=== PATIENT | female | born 1945 | race Caucasian/White ===

== ENCOUNTER 2017-01-11 04:55 | Observation (INO) | payer MEDICARE ==
[~2017-01-11] VITALS: Ht 165.1 cm; Wt 67.8 kg
--- NOTE | 2017-01-11 06:54 | DIAGNOSTIC IMAGING REPORT ---
PROCEDURE: CTA THORAX WITH CONTRAST INDICATION: SHORTNESS OF BREATH TECHNIQUE: 92 ml of Isovue 370 was injected intravenously and axial images were obtained of the entire thorax with 3D sagittal and coronal MIP reconstructions. COMPARISON: Chest x-ray 01/11/2017. FINDINGS: There are two small right lower lobe of pulmonary emboli. Small left pleural effusion and left basilar atelectasis. Elevated left hemidiaphragm. No adenopathy. Sternotomy and CABG. No aortic dissection or aneurysm. Normal heart size with pericardial thickening/small pericardial effusion. Visualized upper abdomen is unremarkable. Mild degenerative changes of the spine. IMPRESSION: 1. Small pulmonary emboli to the right lower lobe 2. Postoperative left basilar atelectasis and small pleural effusion 3. CABG 4. Results discussed with Dr. Dawson
--- NOTE | 2017-01-11 06:58 | DIAGNOSTIC IMAGING REPORT ---
PROCEDURE: XR CHEST 1 VIEW INDICATION: SOB TECHNIQUE: Portable AP view 05:31 a.m. COMPARISON: None. FINDINGS: Mild elevation of the left hemidiaphragm with left basilar mild atelectasis and blunting of the costophrenic angle suggestive of a small effusion. Sternotomy and CABG. Heart size, mediastinum and pulmonary vessels are normal. Bones are unremarkable. IMPRESSION: 1. Mild left basilar atelectasis and small left pleural effusion 2. CABG
--- NOTE | 2017-01-11 07:42 | ED NURSING NOTES ---
Clinical Report - Nurses [facility] [address] [place] [address] 01/11/2017 5:03 [id number] Triage time 04:59. Acuity: LEVEL 2. Chief Complaint: PALPITATIONS and DYSPNEA. Alert. No acute distress. --05:21 Marina Truong R.N. 04:59 01/11/17. BP: 111/61. HR: 71. RR: 15 (regular, unlabored and normal). O2 saturation: 96% on room air. Temp: 98.1 F (oral). Pain level now: 09/24. --05:21 Marina Truong R.N. Weight: 69.8 kg stated. Height/Length: 65.4 inches Per Patient. BMI: 25.3. --05:21 Marina Truong R.N. Medications Acetaminophen Oral (Tablet 325 mg) 2 tablets, PRN. --05:06 Marina Truong R.N. Amiodarone HCL Oral (Tablet 200 mg) 1 tablet, at bedtime. --05:06 Marina Truong R.N. Atorvastatin Calcium Oral (Tablet 40 mg) 1 tablet, at bedtime. --05:07 Marina Truong R.N. Metoprolol Tartrate Oral (Tablet 25 mg) 1 tablet, twice daily. --05:07 Marina Truong R.N. Aspirin Oral (Tablet 325 mg) 1 tablet, daily. --05:08 Marina Truong R.N. Multivitamins Oral 1 pill, daily. --05:08 Marina Truong R.N. Polycarbophil Calcium Oral 625 mg, daily. --05:09 Marina Truong R.N. Allergies Codeine.(nausea) --05:10 Marina Truong R.N. History Arrived by private vehicle. Historian: patient. Accompanied by family. Primary physician (ALBER). ( Had triple bypass on 12-29-16, has been feeling mildly short of breath since the surgery & has not been sleeping well. Tonight she woke up around 0300 feeling increasingly short of breath, took Tylenol). This started today. Onset. (at about 0300). 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 (last dose today at 0300). SOCIAL HX: Smoker- current status unknown. Regular alcohol use; consumes two glasses of wine. History of drug use: marijuana. --05:21 Marina Truong R.N. PROBLEMS: Nonrheumatic aortic valve insufficiency. Hyperlipidemia. Essential Hypertension. Coronary Artery Disease. Angina. --05:19 Marina Truong R.N. ADDITIONAL SURGERIES: Coronary Artery Bypass Graft. Hysterectomy. --05:19 Marina Truong R.N. Interventions ID band on patient. To treatment room. --05: Marina Truong R.N. PHYSICAL ASSESSMENT Ambulatory to room. Patient gowned. ( FAST exam negative). GENERAL / NEURO / PSYCH: Alert. Oriented X 4. Appears in no acute distress. HEENT: Mucous membranes are pink. RESPIRATORY: Respirations not labored. CVS: Capillary refill less than 2 seconds. SKIN: Skin is warm and dry. --05: Marina Truong R.N. EXTREMITIES: Ecchymosis present on the left leg (multiple bruises along left leg.). Non-pitting edema of the left lower extremity involving the foot, ankle and lower leg. SKIN: Extremity wound present (two incision sites noted in left femoral area (tagaderm in place upon arrival) and on medial aspect of left knee (redness noted)). --05:28 Marina Truong R.N. NURSING PROGRESS NOTES Head of bed elevated. Two patient identifiers checked. Call light placed in reach. Side rails up x 1. Bed placed in lowest position. Brakes of bed on. --05:22 Marina Truong R.N. Oxygen administered by nasal cannula at 2 liters (applied upon arrival to ED). teletypesetter monitor, pulse oximeter and NIBP monitor placed on patient; monitor alarms on. --:22 Marina Truong R.N. 05:20 01/11/2017 Site #1 started via IV in the left antecubital space with an 20g angiocath, with aseptic technique and good blood return; one attempt. Blood drawn: rainbow set. Labeled in the presence of the patient and sent to the lab. Saline lock flushed with 10 mL saline (IV started by DEWEY Crocker). --05:23 Marina Truong R.N. 05:32 01/11/17. Portable chest x-ray performed and shown to the ED physician. --05:32 Marina Truong R.N. Critical value relayed to ED by JOSÉ MIGUEL Baires. D-dimmer 5.55. Critical value. Verified lab result and patient ID. ED physician notifed of critical value. --05:54 Marina Truong R.N. ( assisted pt to ambulate to restroom to obtain urine sample. Pt tolerated well, no obvious increase in dyspnea.). --05:58 Marina Truong R.N. Patient ID band checked for patient name and birthdate: patient confirmed. Instructions provided to collect clean catch urine and patient verbalized understanding. Clean catch urine collected with return of yellow-colored clear urine; sample sent to lab. Specimen labeled in the presence of the patient. --06:05 Marina Truong R.N. 06:05 01/11/17. BP: 128/65. HR: 68. RR: 15 (regular and unlabored). O2 saturation: 100% on nasal cannula at 2 liters/minute. --06:06 Marina Truong R.N. ( US Tech at bedside performing US exam.). --06:45 Marina Truong R.N. EKG time: (05:05 AM). EKG was performed by a tech and shown to the ED physician. --06:46 Sandra Lobo 07:05 01/11/17. BP: 111/72. HR: 72. RR: 15. O2 saturation: 96% on room air. --07:09 Marina Truong R.N. ( h/p forms on chart.). --07:44 Oly Goldman ER Tech1 08:22 01/11/2017 Heparin IVP 5584 unit given over 5 minute(s) via site #1. Allergies verified and confirmed 5 rights. IV patency established. IV site checked: no pain, redness, or swelling. IV flushed thoroughly pre- and post-medication administration. --08:22 Morelia Wilson R.N. 08:24 01/11/2017 Heparin IVP 837 unit given over 1 hour(s) via site #1. Allergies verified and confirmed 5 rights. IV patency established. IV site checked: no pain, redness, or swelling. IV flushed thoroughly pre- and post-medication administration. --08:24 Morelia Wilson R.N. 08:24 01/11/17. BP: 136/61. HR: 67. RR: 18. O2 saturation: 95%. Temp: 98.4 F. Pain level now 0/10. --08:24 Morelia Wilson R.N. ( overview faxed to 2nd floor.). --08:32 [place] [id number] 08:24 01/11/17. BP: 136/61. HR: 67. RR: 18. O2 saturation: 95%. Temp: 98.4 F. Pain level now 0/10. 08:00 01/11/17. BP: 115/64. HR: 69. RR: 18. O2 saturation: 94%. 07:30 01/11/17. BP: 116/73. HR: 71. RR: 18. O2 saturation: 95%. --09:16 Morelia Wilson R.N. 09:18 01/11/17. BP: 116/60. HR: 71. RR: 18. O2 saturation: 95%. --09:19 Morelia Wilson R.N. DISPOSITION / DISCHARGE Departure time: 09:Jan 11 2017. Admitted to Acute Care. ( Report given to Elizabeth PALOMO). --09:19 Morelia Wilson R.N. 09:18 01/11/17. BP: 116/60. HR: 71. RR: 18. O2 saturation: 95%. --09:19 Morelia Wilson R.N. Locked/Released at 01/11/2017 10:47 by Morelia Wilson R.N.
--- NOTE | 2017-01-11 07:42 | ED ORDER SUMMARY ---
..... Patient: TEJA WILDE OrderSheet [facility] VisitID: [id number] [place] [address] 71y, F Registration Date/Time: 01/11/2017 ORDER SHEET Weight: 69.8 kg (stated) Allergies: Codeine GENERAL ORDERS: Tabber (Continuous) (SOB) (05:01/11/2017 Keon Rivera) (5:20 RKaruga) EKG - ER Stat (05:01/11/2017 Keon Rivera) (5:20 RKaruga) Pulse oximeter (05:01/11/2017 Keon Rivera) (5:20 RKaruga) Chest 1V Urgent (05:01/11/2017 Keon Rivera) (Ack 5:25 RKaruga) (5:58 RCollier R.N.) US Venous Bilat Urgent (05:01/11/2017 Keon Rivera) (Ack 5:25 RKaruga) (7:11 RCollier R.N.) CBC w Diff Urgent (05:01/11/2017 Keon Rivera) (Ack 5:25 RKaruga) (5:58 RCollier R.N.) CMP Urgent (:01/11/2017 Keon Rivera) (Ack 5:25 RKaruga) (5:58 RCollier R.N.) UA-Culture if indicated Urgent (05:01/11/2017 Keon Rivera) (Ack 5:25 RKaruga) (6:06 RCollier R.N.) PT with INR Urgent (05:01/11/2017 Keon Rivera) (Ack 5:25 RKaruga) (5:58 RCollier R.N.) PTT Urgent (:01/11/2017 Keon Rivera) (Ack 5:25 RKaruga) (5:58 RCollier R.N.) D-Dimer Urgent (05:01/11/2017 Keon Rivera) (Ack 5:25 RKaruga) (5:58 RCollier R.N.) BNP Urgent (05:22 01/11/2017 Keon Rivera) (Ack 5:25 Rosina) (5:58 RCollier R.N.) Troponin-I Urgent (05:22 01/11/2017 Keon Rivera) (Ack 5:25 Rosina) (5:58 RCollier R.N.) CTA Thorax w Cont (No) (gfr > 60) Urgent (05:52 01/11/2017 Keon Rivera) (Ack 6:02 Rosina) (7:11 RCollier R.N.) MEDICATION ORDERS: IV FLUIDS: IV Saline Lock (05:22 01/11/2017 Keon Rivera) (Ack 5:28 RCollier R.N.) Heparin IV : initial bolus 80 units/kg, then 12 units/kg/hr for 12h (HIGH ALERT MEDICATION, NOW) (max bolus 10,000 u. max drip 1,000 u per hour) (07:39 01/11/2017 Keon Rivera) (8:22 LWhalen R.N.) ORDER SHEET NOTES: [Electronically signed by Dustin Dawson Dr. (08:07 01/11/2017)] [Electronically signed by Morelia Wilson R.N. (10:47 01/11/2017)] [Electronically locked/signed by Morelia Wilson R.N. (10:47 01/11/2017)]
--- NOTE | 2017-01-11 07:42 | ED NURSING NOTES ---
Clinical Report - Nurses [facility] [address] [place] [address] 01/11/2017 5:03 [id number] TRIAGE Triage time 04:59. Acuity: LEVEL 2. Chief Complaint: PALPITATIONS and DYSPNEA. Alert. No acute distress. --05:21 Marina Truong R.N. 04:59 01/11/17. BP: 111/61. HR: 71. RR: 15 (regular, unlabored and normal). O2 saturation: 96% on room air. Temp: 98.1 F (oral). Pain level now: 09/24. --05:21 Marina Truong R.N. Weight: 69.8 kg stated. Height/Length: 65.4 inches Per Patient. BMI: 25.3. --05:21 Marina Truong R.N. Medications Acetaminophen Oral (Tablet 325 mg) 2 tablets, PRN. --05:06 Marina Truong R.N. Amiodarone HCL Oral (Tablet 200 mg) 1 tablet, at bedtime. --05:06 Marina Truong R.N. Atorvastatin Calcium Oral (Tablet 40 mg) 1 tablet, at bedtime. --05:07 Marina Truong R.N. Metoprolol Tartrate Oral (Tablet 25 mg) 1 tablet, twice daily. --05:07 Marina Truong R.N. Aspirin Oral (Tablet 325 mg) 1 tablet, daily. --05:08 Marina Truong R.N. Multivitamins Oral 1 pill, daily. --05:08 Marina Truong R.N. Polycarbophil Calcium Oral 625 mg, daily. --05:09 Marina Truong R.N. Allergies Codeine.(nausea) --05:10 Marina Truong R.N. History Arrived by private vehicle. Historian: patient. Accompanied by family. Primary physician (ALBER). ( Had triple bypass on 12-29-16, has been feeling mildly short of breath since the surgery & has not been sleeping well. Tonight she woke up around 0300 feeling increasingly short of breath, took Tylenol). This started today. Onset. (at about 0300). 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 (last dose today at 0300). SOCIAL HX: Smoker- current status unknown. Regular alcohol use; consumes two glasses of wine. History of drug use: marijuana. --05:21 Marina Truong R.N. PROBLEMS: Nonrheumatic aortic valve insufficiency. Hyperlipidemia. Essential Hypertension. Coronary Artery Disease. Angina. --05:19 Marina Truong R.N. ADDITIONAL SURGERIES: Coronary Artery Bypass Graft. Hysterectomy. --05:19 Marina Truong R.N. Interventions ID band on patient. To treatment room. --05: Marina Truong R.N. PHYSICAL ASSESSMENT Ambulatory to room. Patient gowned. ( FAST exam negative). GENERAL / NEURO / PSYCH: Alert. Oriented X 4. Appears in no acute distress. HEENT: Mucous membranes are pink. RESPIRATORY: Respirations not labored. CVS: Capillary refill less than 2 seconds. SKIN: Skin is warm and dry. --05: Marina Truong R.N. EXTREMITIES: Ecchymosis present on the left leg (multiple bruises along left leg.). Non-pitting edema of the left lower extremity involving the foot, ankle and lower leg. SKIN: Extremity wound present (two incision sites noted in left femoral area (tagaderm in place upon arrival) and on medial aspect of left knee (redness noted)). --05:28 Marina Truong R.N. NURSING PROGRESS NOTES Head of bed elevated. Two patient identifiers checked. Call light placed in reach. Side rails up x 1. Bed placed in lowest position. Brakes of bed on. --05:22 Marina Truong R.N. Oxygen administered by nasal cannula at 2 liters (applied upon arrival to ED). secured entrance monitor, pulse oximeter and NIBP monitor placed on patient; monitor alarms on. --:22 Marina Truong R.N. 05:20 01/11/2017 Site #1 started via IV in the left antecubital space with an 20g angiocath, with aseptic technique and good blood return; one attempt. Blood drawn: rainbow set. Labeled in the presence of the patient and sent to the lab. Saline lock flushed with 10 mL saline (IV started by DEWEY Crocker). --05:23 Marina Truong R.N. 05:32 01/11/17. Portable chest x-ray performed and shown to the ED physician. --05:32 Marina Truong R.N. Critical value relayed to ED by JOSÉ MIGUEL Baires. D-dimmer 5.55. Critical value. Verified lab result and patient ID. ED physician notifed of critical value. --05:54 Marina rTuong R.N. ( assisted pt to ambulate to restroom to obtain urine sample. Pt tolerated well, no obvious increase in dyspnea.). --05:58 Marina Truong R.N. Patient ID band checked for patient name and birthdate: patient confirmed. Instructions provided to collect clean catch urine and patient verbalized understanding. Clean catch urine collected with return of yellow-colored clear urine; sample sent to lab. Specimen labeled in the presence of the patient. --06:05 Marina Truong R.N. 06:05 01/11/17. BP: 128/65. HR: 68. RR: 15 (regular and unlabored). O2 saturation: 100% on nasal cannula at 2 liters/minute. --06:06 Marina Truong R.N. ( US Tech at bedside performing US exam.). --06:45 Marina Truong R.N. EKG time: (05:05 AM). EKG was performed by a tech and shown to the ED physician. --06:46 Sandra Lobo 07:05 01/11/17. BP: 111/72. HR: 72. RR: 15. O2 saturation: 96% on room air. --07:09 Marina Truong R.N. ( h/p forms on chart.). --07:44 Oly Goldman ER Tech1 08:22 01/11/2017 Heparin IVP 5584 unit given over 5 minute(s) via site #1. Allergies verified and confirmed 5 rights. IV patency established. IV site checked: no pain, redness, or swelling. IV flushed thoroughly pre- and post-medication administration. --08:22 Morelia Wilson R.N. 08:24 01/11/2017 Heparin IVP 837 unit given over 1 hour(s) via site #1. Allergies verified and confirmed 5 rights. IV patency established. IV site checked: no pain, redness, or swelling. IV flushed thoroughly pre- and post-medication administration. --08:24 Morelia Wilson R.N. 08:24 01/11/17. BP: 136/61. HR: 67. RR: 18. O2 saturation: 95%. Temp: 98.4 F. Pain level now 0/10. --08:24 Morelia Wilson R.N. ( overview faxed to 2nd floor.). --08:32 [place] [id number] 08:24 01/11/17. BP: 136/61. HR: 67. RR: 18. O2 saturation: 95%. Temp: 98.4 F. Pain level now 0/10. 08:00 01/11/17. BP: 115/64. HR: 69. RR: 18. O2 saturation: 94%. 07:30 01/11/17. BP: 116/73. HR: 71. RR: 18. O2 saturation: 95%. --09:16 Morelia Wilson R.N. 09:18 01/11/17. BP: 116/60. HR: 71. RR: 18. O2 saturation: 95%. --09:19 Morelia Wilson R.N. DISPOSITION / DISCHARGE Departure time: 09:Jan 11 2017. Admitted to Acute Care. ( Report given to Elizabeth PALOMO). --09:19 Morelia Wilson R.N. 09:18 01/11/17. BP: 116/60. HR: 71. RR: 18. O2 saturation: 95%. --09:19 Morelia Wilson R.N. Locked/Released at 01/11/2017 10:47 by Morelia Wilson R.N.
--- NOTE | 2017-01-11 07:42 | ED CLINICAL REPORT ---
Clinical Report - Physicians/Mid Levels Merged With [facility] [address] [place] [address] 01/11/2017 5:03 [id number] Time Seen: 0510. Arrived- By private vehicle. Historian- patient. HISTORY OF PRESENT ILLNESS Chief Complaint: DYSPNEA. This started today and is still present and worsening. It was abrupt in onset and has been constant but is not gone now. The dyspnea is described as moderate and is worsened by exertion and is improved by rest. No fever or chills. She has had chest pain. She has had mild left foot swelling. (recent CABG. reports the surgery went well. no problems. has been following the instructions after the surgery.). Similar symptoms previously: None. Recent medical care: The patient was seen recently by a health care provider. REVIEW OF SYSTEMS No nausea, abdominal pain, headache or skin rash. All systems otherwise negative, except as recorded above. PAST HISTORY See nurses notes. Medications: Polycarbophil Calcium Oral 625 mg, daily. Multivitamins Oral 1 pill, daily. Aspirin Oral (Tablet 325 mg) 1 tablet, daily. Metoprolol Tartrate Oral (Tablet 25 mg) 1 tablet, twice daily. Atorvastatin Calcium Oral (Tablet 40 mg) 1 tablet, at bedtime. Amiodarone HCL Oral (Tablet 200 mg) 1 tablet, at bedtime. Acetaminophen Oral (Tablet 325 mg) 2 tablets, PRN. Allergies: Codeine.(nausea). SOCIAL HISTORY Never smoker. Alcohol use. History of occasional drug use: marijuana. Recent travel- ([place], [place]). Is a local resident. ADDITIONAL NOTES The nursing notes have been reviewed. PHYSICAL EXAM Vital Signs: 01/11/2017 04:59 BP: 111/61. HR: 71. RR: 15. O2 saturation: 96%. Temp: 98.1 F. Pain level now: 2/10. Blood pressure normal. Oxygen saturation normal. Appearance: Alert. No acute distress. (non-toxic. pleasant. cooperative. smiling.). Eyes: Pupils equal, round and reactive to light. Eyes normal inspection. No pale conjunctivae. ENT: Ears normal. Nose normal. Pharynx normal. Uvula midline. Neck: Normal inspection. No jugular venous distention. Neck supple. CVS: Normal heart rate and rhythm. Heart sounds normal. Pulses normal. (well healed midline anterior chest wound. c/d/i. consistent with recent cardiac surgery.). Respiratory: No respiratory distress. Breath sounds normal. No wheezes, stridor, rales or rhonchi. Abdomen: Soft and nontender. No organomegaly. Skin: Skin warm and dry. Normal skin color. No rash. Normal skin turgor. Extremities: Extremities exhibit normal ROM. No lower extremity edema. Neuro: Oriented X 3. No motor deficit. No sensory deficit. LABS, X-RAYS, AND EKG EKG: No acute ischemia. Normal sinus rhythm. Rate: 69. Normal P waves. Normal DAISY. Normal QRS complex. Normal axis. Normal QT and QTc. Non-specific T wave flattening in lead V5 and V6. T wave inversion in lead V1, V2, V3 and V4. No ST elevation or depression. Prior EKG unavailable. The study has been interpreted contemporaneously by me. The study has been independently viewed by me. The EKG appears to be a good tracing. Chest X-ray: (PROCEDURE: XR CHEST 1 VIEW INDICATION: SOB TECHNIQUE: Portable AP view 05:31 a.m. COMPARISON: None. FINDINGS: Mild elevation of the left hemidiaphragm with left basilar mild atelectasis and blunting of the costophrenic angle suggestive of a small effusion. Sternotomy and CABG. Heart size, mediastinum and pulmonary vessels are normal. Bones are unremarkable. IMPRESSION: 1. Mild left basilar atelectasis and small left pleural effusion 2. CABG). Views: AP (portable). The X-rays were independently viewed by me, interpreted by the radiologist and discussed with the radiologist. Chest CT: (PROCEDURE: CTA THORAX WITH CONTRAST INDICATION: SHORTNESS OF BREATH TECHNIQUE: 92 ml of Isovue 370 was injected intravenously and axial images were obtained of the entire thorax with 3D sagittal and coronal MIP reconstructions. COMPARISON: Chest x-ray 01/11/2017. FINDINGS: There are two small right lower lobe of pulmonary emboli. Small left pleural effusion and left basilar atelectasis. Elevated left hemidiaphragm. No adenopathy. Sternotomy and CABG. No aortic dissection or aneurysm. Normal heart size with pericardial thickening/small pericardial effusion. Visualized upper abdomen is unremarkable. Mild degenerative changes of the spine. IMPRESSION: 1. Small pulmonary emboli to the right lower lobe 2. Postoperative left basilar atelectasis and small pleural effusion 3. CABG). Laboratory Tests: UA-Culture if indicated: (J CARLOS: 01/11/2017 06:05) ( [facility] 01/11[facility] 06:19) Final results Test Result Flag Units (Reference) URINE COLOR YELLOW URINE APPEARANCE CLEAR URINE GLUCOSE NEGATIVE (NEGATIVE) URINE BILIRUBIN NEGATIVE (NEGATIVE) URINE KETONE NEGATIVE (NEGATIVE) URINE SPECIFIC GRAVITY 1.010 (1.010-1.030) URINE PH 6.0 (5.0-8.0) URINE PROTEIN NEGATIVE (NEGATIVE) URINE UROBILINOGEN 0.2 EU/dL (0.2-1.0) URINE NITRITE NEGATIVE (NEGATIVE) URINE BLOOD NEGATIVE (NEGATIVE) URINE LEUK ESTERASE NEGATIVE (NEGATIVE) URINE RBC 0-1 rbc/hpf (0-1) URINE WBC 0-1 wbc/hpf (0-1) URINE EPITHELIAL CELLS 0-1 EPI/hpf (0-5) URINE BACTERIA NONE SEEN (NONE SEEN) URINE COMMENT CULT NOT INDICATED URINE CULTURES ARE SET-UP BASED ON THE FOLLOWING CRITERIA:POSITIVE NITRITEPOSITIVE LEUKOCYTE ESTERASEGREATER THAN 10 WHITE BLOOD CELLSMODERATE (2+) OR GREATER BACTERIA CBC w Diff: (J CARLOS: 01/11/2017 05:11) ( [facility] 01/11/2017 05:29) Final results Test Result Flag Units (Reference) WHITE BLOOD COUNT 11.4 K/uL (4.5-11.5) RED BLOOD COUNT 3.03 L M/uL (4.00-5.20) HEMOGLOBIN 9.6 L gm/dL (12.0-16.0) HEMATOCRIT 28.6 L % (36.0-46.0) MEAN CELL VOLUME 95 fL (80-100) MEAN CORPUSCULAR HGB 32 pg (26-34) MEAN CORPUSCULAR HGB CONC 34 g/dL (31-37) RED CELL DISTRIBUTION WIDTH 15.5 H % (11.6-14.8) PLATELET COUNT 125 L K/uL (150-400) NEUTROPHIL % 74.3 % (50-75) LYMPH % 17.6 L % (25-40) MONO % 5.4 % (3-14) EOSINOPHIL % 1.4 % (0-4) BASOPHIL % 1.3 % (0-2) PT with INR: (J CARLOS: 01/11/2017 05:11) ( [facility] 01/11/2017 05:51) Final results Test Result Flag Units (Reference) INR 1.0 (0.8-1.2) Low Intensity Therapy: INR 1.5-2.0 PT range 18.5-23.1Mod.Intensity Therapy: INR 2.0-3.0 PT range 23.1-31.5High Intensity Therapy: INR 2.5-3.5 PT range 27.4-35.5High Intensity Therapy 2: INR 3.0-4.0 PT range 31.5-39.3 APTT 29 SECONDS (24-34) D-DIMER QUANTITATIVE 5.55 *H ug/mLFEU (0.27-0.52) CRITICAL RESULTS CALLEDCalled to NORAH PANIAGUA RN 01/11/17 0551Were 2 patient identifiers used? YWas the result read back? YThe primary value of this quantitative assay relates toits negative predictive value (i.e. exclusion) of pulmonaryembolism/deep vein thrombosis/DIC.Elevated levels of d-dimer may also occur with:, age, cancer, inflammation, liver disease,post-op, infection, hematoma, coronary disease, peripheralarteriopathy, bleeding disorders and thrombolytic treatment.Results should be correlated with other clinical andradiological data.Testing Methodology: Latex Immunoassay BNP: (J CARLOS: 01/11/2017 05:11) ( [facility] 01/11/2017 05:46) Final results Test Result Flag Units (Reference) B-TYPE NATRIURETIC PEPTIDE 357 H pg/ml (5-100) CMP: (J CARLOS: 01/11/2017 05:11) ( [facility] 01/11/2017 05:41) Final results Test Result Flag Units (Reference) GLUCOSE 127 H mg/dL (70-110) BUN 16 mg/dL (7-18) CREATININE 0.9 mg/dL (0.6-1.3) Estimated GFR >60 mL/min Estimated GFR- >60 mL/min Note: Persistent reduction over 3 months in eGFR<60 mL/min/1.73 m2 defines CKD. Patients with eGFR values>=60 mL/min/1.73 m2 may also have CKD if evidence ofpersistent proteinuria. Additional information may be foundat www.kidney.org. SODIUM 137 mmol/L (136-145) POTASSIUM 3.9 mmol/L (3.5-5.1) CHLORIDE 102 mmol/L (98-107) CARBON DIOXIDE 23 mmol/L (21-32) CALCIUM 8.9 mg/dL (8.5-10.1) TOTAL PROTEIN 7.2 g/dL (6.4-8.2) ALBUMIN 3.5 g/dL (3.3-5.0) BILIRUBIN, TOTAL 1.1 H mg/dL (0.0-1.0) ALKALINE PHOSPHATASE 93 U/L (46-116) AST (SGOT) 39 H U/L (15-37) ALT (SGPT) 47 U/L (12-78) TROPONIN I <0.05 ng/mL (0.00-1.5) TROPONIN REFERENCE RANGE:<0.1 NEGATIVE0.1-1.5 INDETERMINANT>1.5 POSITIVE . PROGRESS AND PROCEDURES Course of Care: the patient is a pleasant 71-year-old female presenting for evaluation of shortness of breath. At this time differential diagnosis includes acute myocardial infarction, congestive heart failure, pulmonary embolism, or pericardial effusion/tamponade on. Patient is resting in bed and in no acute distress. Patient is noted to be satting well on room air. Oxygen saturations are 96% on room air. No wheezing noted on examination. Patient is agreeable to treatment and plan. Patient will be evaluated with ultrasound of the lower extremities as well as chest x-ray EKG and laboratory studies. The patient's workup was remarkable for the findings above. Patient with significant elevation in the d-dimer. Because of this, a CT scan of the patient's chest will be ordered for evaluation of acute pulmonary embolism. EKG do not show any acute findings which would be concerning for acute ischemia. Troponin is noted to be negative. Patient's BNP is slightly elevated however and not likely the cause for the patient's symptoms today. The patient's CT scan of the chest was significant for a pulmonary embolism noted in the right lower lobe. Because of the patient's recent surgery, consulted with the patient's surgery's group over in [facility]. Was able to speak to the on-call covering for the patient's CT surgeon. Recommended patient be on non-fractioned heparin in case patient needs reversal of the anticoagulation. Patient also needed to be bridged over to Coumadin. After discussion with CT surgery, spoke to the patient in regards to the risks and benefits of theanticoagulation. Patient is agreeable to anticoagulation therapy. Was able to then speak to the hospitalist who will accept the patient. Patient will betaken to the floor with telemetry. Did not fill patient is admitted to the intensive care unit time. Patient did mention a history of bleeding external hemorrhoids however no other history of gastrointestinal bleeding. Patient will be anticoagulated. Discussed with the patient as well as the patient's daughter who is at bedside per patient's requesttheir workup. The emergency department including diagnosis and plan of care. All questions have been answered. Patient to family agreeable to the treatment and plan. The patient will be admitted to the floor. Patient is currently resting in bed and in no acute distress. Critical care performed (65 minutes). Time is exclusive of separately billable procedures. Time includes: direct patient care, patient reassessment, coordination of patient care, interpretation of data (laboratory data and chest xrays), review of patient's medical records, medical consultation, family consultation regarding treatment decisions and documentation of patient care. Consult obtained. CT surgery. Phone consult only. Disposition: Admitted to Acute Care. CLINICAL IMPRESSION acute pulmonary embolism to the right lower lobe acute DVT to left leg. (Electronically signed by Dustin Dawson Dr. 01/11/2017 8:07)
--- NOTE | 2017-01-11 07:42 | ED ORDER SUMMARY ---
..... Patient: TEJA WILDE OrderSheet [facility] VisitID: [id number] [place] [address] 71y, F Registration Date/Time: 01/11/2017 ORDER SHEET Weight: 69.8 kg (stated) Allergies: Codeine GENERAL ORDERS: Discharge Coordinator (Continuous) (SOB) (05:01/11/2017 Keon Rivera) (5:20 RKaruga) EKG - ER Stat (05:01/11/2017 Keon Rivera) (5:20 RKaruga) Pulse oximeter (05:01/11/2017 Keon Rivera) (5:20 RKaruga) Chest 1V Urgent (05:01/11/2017 Keon Rivera) (Ack 5:25 RKaruga) (5:58 RCollier R.N.) US Venous Bilat Urgent (05:01/11/2017 Keon Rivera) (Ack 5:25 RKaruga) (7:11 RCollier R.N.) CBC w Diff Urgent (05:01/11/2017 Keon Rivera) (Ack 5:25 RKaruga) (5:58 RCollier R.N.) CMP Urgent (:01/11/2017 Keon Rivera) (Ack 5:25 RKaruga) (5:58 RCollier R.N.) UA-Culture if indicated Urgent (05:01/11/2017 Keon Rivera) (Ack 5:25 RKaruga) (6:06 RCollier R.N.) PT with INR Urgent (05:01/11/2017 Keon Rivera) (Ack 5:25 RKaruga) (5:58 RCollier R.N.) PTT Urgent (:01/11/2017 Keon Rivera) (Ack 5:25 RKaruga) (5:58 RCollier R.N.) D-Dimer Urgent (05:01/11/2017 Keon Rivera) (Ack 5:25 RKaruga) (5:58 RCollier R.N.) BNP Urgent (05:22 01/11/2017 Keon Rivera) (Ack 5:25 Rosina) (5:58 RCollier R.N.) Troponin-I Urgent (05:22 01/11/2017 Keon Rivera) (Ack 5:25 Rosina) (5:58 RCollier R.N.) CTA Thorax w Cont (No) (gfr > 60) Urgent (05:52 01/11/2017 Keon Rivera) (Ack 6:02 Rosina) (7:11 RCollier R.N.) MEDICATION ORDERS: IV FLUIDS: IV Saline Lock (05:22 01/11/2017 Keon Rivera) (Ack 5:28 RCollier R.N.) Heparin IV : initial bolus 80 units/kg, then 12 units/kg/hr for 12h (HIGH ALERT MEDICATION, NOW) (max bolus 10,000 u. max drip 1,000 u per hour) (07:39 01/11/2017 Keon Rivera) (8:22 LWhalen R.N.) ORDER SHEET NOTES: [Electronically signed by Dustin Dawson Dr. (08:07 01/11/2017)] [Electronically signed by Morelia Wilson R.N. (10:47 01/11/2017)] [Electronically locked/signed by Morelia Wilson R.N. (10:47 01/11/2017)]
--- NOTE | 2017-01-11 08:16 | DIAGNOSTIC IMAGING REPORT ---
PROCEDURE: US VENOUS - BILATERAL EXT INDICATION: RECENT SURGERY. SOB TECHNIQUE: Color Doppler duplex imaging of the deep and superficial venous system without and with compression. COMPARISON: None. FINDINGS: RIGHT LOWER EXTREMITY: Deep and superficial venous system of the right lower extremity is within normal limits. There is no evidence of deep vein thrombosis or superficial thrombophlebitis. LEFT LOWER EXTREMITY: Thrombosis of the common femoral and proximal greater saphenous vein. Remaining venous structures are patent. 1.9 x 1.2 x 0.6 cm hypoechoic solid mass in the proximal thigh, possibly a small hematoma. IMPRESSION: 1. Left common femoral vein DVT 2. Superficial phlebitis of the left greater saphenous vein 3. No evidence of a right lower extremity DVT.
[2017-01-11 09:37] VITALS: BP 128/69
--- NOTE | 2017-01-11 10:47 | ED DISCHARGE INSTRUCTIONS ---
Patient: TEJA WILDE General Instructions [facility] VisitID: [id number] [address] [place] [address] 71y, F Registration Date/Time: 01/11/2017 acute pulmonary embolism to the right lower lobe acute DVT to left leg. (Electronically signed by Dustin Dawson Dr. 01/11/2017 8:07)
--- NOTE | 2017-01-11 10:47 | ED MAR SUMMARY ---
..... Medication Administration Record [facility] [address] [place] [address] Patient: TEJA WILDE Visit ID: [id number] 71y, F Weight: 69.8 kg Height/Length: 65.4 in BMI: 25.3 ALLERGIES: Codeine Given 08:22 01/11/2017 Morelia Wilson R.N. Medication Administered: HEPARIN [IVP], Dose: 5584 unit IVP over 5 minute(s), Site: #1 left AC. Medication Ordered: Heparin IV : initial bolus 80 units/kg, then 12 units/kg/hr for 12h (HIGH ALERT MEDICATION, NOW) (max bolus 10,000 u. max drip 1,000 u per hour). Given 08:24 01/11/2017 Morelia Wilson R.N. Medication Administered: HEPARIN [IVP], Dose: 837 unit IVP over 1 hour(s), Site: #1 left AC. Medication Ordered: Heparin IV : initial bolus 80 units/kg, then 12 units/kg/hr for 12h (HIGH ALERT MEDICATION, NOW) (max bolus 10,000 u. max drip 1,000 u per hour).
--- NOTE | 2017-01-11 10:47 | ED MED RECONCILIATION SUMMARY ---
Patient: TEJA WILDE Medication Reconciliation Report [facility] VisitID: [id number] [address] [place] [address] 71y, F Registration Date/Time: 01/11/2017 Weight: 69.8 kg Height/Length: 60 in. BMI: 25.3 ALLERGIES: Codeine The patient's Home Medications are listed below: THE FOLLOWING MEDICATIONS NEED TO BE RECONCILED: Acetaminophen Oral (325 mg) 2 tablets, PRN Amiodarone HCL Oral (200 mg) 1 tablet, at bedtime Aspirin Oral (325 mg) 1 tablet, daily Atorvastatin Calcium Oral (40 mg) 1 tablet, at bedtime Metoprolol Tartrate Oral (25 mg) 1 tablet, twice daily Multivitamins Oral 1 pill, daily Polycarbophil Calcium Oral 625 mg, daily The source(s) of the original Home Medication information: Not obtained. The following Medications were given to the patient in the Emergency Department: Heparin [IVP] IVP 5584 unit, administered: 01/11/2017 8:22:00 AM Heparin [IVP] IVP 837 unit, administered: 01/11/2017 8:24:00 AM The following Medications were prescribed to the patient: None.
--- NOTE | 2017-01-11 10:47 | ED MAR SUMMARY ---
..... Medication Administration Record [facility] [address] [place] [address] Patient: TEJA WILDE Visit ID: [id number] 71y, F Weight: 69.8 kg Height/Length: 65.4 in BMI: 25.3 ALLERGIES: Codeine Given 08:22 01/11/2017 Morelia Wilson R.N. Medication Administered: HEPARIN [IVP], Dose: 5584 unit IVP over 5 minute(s), Site: #1 left AC. Medication Ordered: Heparin IV : initial bolus 80 units/kg, then 12 units/kg/hr for 12h (HIGH ALERT MEDICATION, NOW) (max bolus 10,000 u. max drip 1,000 u per hour). Given 08:24 01/11/2017 Morelia Wilson R.N. Medication Administered: HEPARIN [IVP], Dose: 837 unit IVP over 1 hour(s), Site: #1 left AC. Medication Ordered: Heparin IV : initial bolus 80 units/kg, then 12 units/kg/hr for 12h (HIGH ALERT MEDICATION, NOW) (max bolus 10,000 u. max drip 1,000 u per hour).
--- NOTE | 2017-01-11 10:47 | ED MED RECONCILIATION SUMMARY ---
Patient: TEJA WILDE Medication Reconciliation Report [facility] VisitID: [id number] [address] [place] [address] 71y, F Registration Date/Time: 01/11/2017 Weight: 69.8 kg Height/Length: 60 in. BMI: 25.3 ALLERGIES: Codeine The patient's Home Medications are listed below: THE FOLLOWING MEDICATIONS NEED TO BE RECONCILED: Acetaminophen Oral (325 mg) 2 tablets, PRN Amiodarone HCL Oral (200 mg) 1 tablet, at bedtime Aspirin Oral (325 mg) 1 tablet, daily Atorvastatin Calcium Oral (40 mg) 1 tablet, at bedtime Metoprolol Tartrate Oral (25 mg) 1 tablet, twice daily Multivitamins Oral 1 pill, daily Polycarbophil Calcium Oral 625 mg, daily The source(s) of the original Home Medication information: Not obtained. The following Medications were given to the patient in the Emergency Department: Heparin [IVP] IVP 5584 unit, administered: 01/11/2017 8:22:00 AM Heparin [IVP] IVP 837 unit, administered: 01/11/2017 8:24:00 AM The following Medications were prescribed to the patient: None.
--- NOTE | 2017-01-11 10:47 | ED DISCHARGE INSTRUCTIONS ---
Patient: TEJA WILDE General Instructions [facility] VisitID: [id number] [address] [place] [address] 71y, F Registration Date/Time: 01/11/2017 acute pulmonary embolism to the right lower lobe acute DVT to left leg. (Electronically signed by Dustin Dawson Dr. 01/11/2017 8:07)
[2017-01-11] MEDS ORDERED: AMIODARONE HCL200 MG PO (11:06)
[2017-01-11] MEDS ORDERED: LIPITOR40 MG PO (11:07)
[2017-01-11] MEDS ORDERED: LOPRESSOR25 MG PO (11:08)
--- NOTE | 2017-01-11 12:03 | History & Physical Report ---
Information Source Information Source: Self Reliability: Good History Chief Complaint shortness of breath and palpiations History of Present Illness Pt is a 71 year old female presenting with palpitations of one day duration. Patient is a recent double bypass patient who recieved surgery on the of this month. Patient tolerated the procedure well but did not have any evidnece of complications immediately after. Patient went home to recover and did not have any problems at home. Patient was finding herslef much less active than what she was before and finding herself resting in bed more than before. Patient yesterday was sleeping more than usual and after waking up from a nap patient noticed that she was having frequent palpitations. Patient became worried when the palpitations did not dissipate throughout the day. Patient was concerned enough to call EMS in the middle of the night. Patient was brought to the ED and scanned and was found to have both DVT and PE. Patient is currently stable and will be brought to the floor. Patient History 1. Pulmonary embolism 2. 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 Patient smoked for 10 years ago in her teens. Patient does not drink and uses marijuana occasionally. Patient lives at home with her daughter and manages all her adls indepentely Family History Family history was reviewed; no changes noted. Medications and Allergies Medications Home Medications Amiodarone 200 mg daily Metoprolol 24 mg bid Atorvastatin 40 mg daily Current Medications Sig/Evan Start time Last Medication Dose Route Stop Time Status Admin Metoprolol Tartrate 25 MG BID 01/11 2100 AC PO Amiodarone HCl 200 MG DAILY 01/11 1600 AC PO Heparin Sodium See Dose .ADJUSTMENT DOSE PRN 01/11 1200 AC (Porcine) Insts (1) IV Heparin Sodium/ 500 ML TITRATE 01/11 1200 AC 05/30 Sodium Chloride IV 1505 Acetaminophen 650 MG Q6H PRN 01/11 1030 AC 05/30 PO 1120 Dose Instructions: (1)Heparin Sodium (Porcine): DOSE PER ADMIN CRITERIA (2000 - 4000 UNITS) SEE ORDER SET Allergies Coded Allergies: Lactose Intolerance (GI) (Mild, Abdominal Pain 01/11/17) GAS/CRAMPING Codeine (Nausea 01/11/17) Review of Systems Constitutional Denies: Fever, Chills, Sweats, Weakness, Malaise, Other. Eyes Denies: Pain, Vision Change, Conjunctival Inflammation, Eyelid Inflammation, Redness, Other. Respiratory Denies: Cough, Dry, SOB w/exertion, Wheezing, Hemoptysis, Pleuritic Pain, Sputum , Other. Cardiovascular Palpitations. Denies: Chest Pain, Orthopnea, PND, Edema, Light-headedness, Other. Gastrointestinal Denies: Nausea, Vomiting, Abdominal Pain, Diarrhea, Constipation, Melena, Hematochezia, Other. Genitourinary Denies: Dysuria, Frequency, Incontinence, Hematuria, Retention, Other. Musculoskeletal Denies: Neck Pain, Shoulder Pain, Arm Pain, Back Pain, Hand Pain, Leg Pain, Foot Pain, Other. Skin Denies: Rash, Lesions, Jaundice, Bruising, Other. Neurological Denies: Weakness, Numbness, Incoordination, Change in speech, Confusion, Seizures, Other. Physical Exam Vital Signs / I&Os Vital Signs Date Time Temp Pulse Resp B/P Pulse O2 O2 Flow FiO2 Ox Delivery Rate 01/11 1437 98.4 74 20 104/54 97 Room Air 0.0 01/11 1249 97.3 77 21 103/67 95 Room Air 0.0 01/11 0944 95 01/11 0937 97.9 74 20 128/69 96 Room Air 0.0 General Appearance Alert, Oriented X3, No acute distress HEENT Atraumatic, PERRLA, Moist mucous membranes Lungs Clear to auscultation Neck Supple, No JVD, No masses, No thyromegaly Cardiovascular No murmurs, gallops, rubs, - irregularly irregular rythm Abdomen Soft, No tenderness, No rebound, No masses Extremities No clubbing, No edema, Normal pulses, - some degree of lower leg tenderness bilaterally Skin No Breakdown Neurological Normal speech, Sensation intact, Cranial nerves intact Psych/Mental Status Mood normal LAB Results Laboratory Tests 01/11 01/11 01/11 0511 0511 0605 Chemistry Plasma Sodium (136 - 145 mmol/L) 137 Plasma Potassium (3.5 - 5.1 mmol/L) 3.9 Plasma Chloride (98 - 107 mmol/L) 102 CO2 (Enzymatic) (21 - 32 mmol/L) 23 BUN (7 - 18 mg/dL) 16 Creatinine (0.6 - 1.3 mg/dL) 0.9 Est GFR ( Amer) (mL/min) >60 Est GFR (Non-Af Amer) (mL/min) >60 Glucose (70 - 110 mg/dL) 127 Plasma Calcium (8.5 - 10.1 mg/dL) 8.9 Total Bilirubin (0.0 - 1.0 mg/dL) 1.1 AST (15 - 37 U/L) 39 ALT (12 - 78 U/L) 47 Alkaline Phosphatase (46 - 116 U/L) 93 Troponin (0.00 - 1.5 ng/mL) <0.05 B-Natriuretic Peptide (5 - 100 pg/ml) 357 Total Protein (6.4 - 8.2 g/dL) 7.2 Albumin (3.3 - 5.0 g/dL) 3.5 Coagulation INR (0.8 - 1.2) 1.0 APTT (24 - 34 SECONDS) 29 D-Dimer, Quantitative (0.27 - 0.52 ug/mLFEU) 5.55 Hematology WBC (4.5 - 11.5 K/uL) 11.4 RBC (4.00 - 5.20 M/uL) 3.03 Hgb (12.0 - 16.0 gm/dL) 9.6 Hct (36.0 - 46.0 %) 28.6 MCV (80 - 100 fL) 95 MCH (26 - 34 pg) 32 RDW (11.6 - 14.8 %) 15.5 Neut % (Auto) (50 - 75 %) 74.3 Lymph % (Auto) (25 - 40 %) 17.6 [place] % (Auto) (3 - 14 %) 5.4 Eos % (Auto) (0 - 4 %) 1.4 Baso % (Auto) (0 - 2 %) 1.3 Plt Count, EDTA (150 - 400 K/uL) 125 PUBS MCHC (31 - 37 g/dL) 34 Urines Urine Color YELLOW Urine Appearance CLEAR Urine pH (5.0 - 8.0) 6.0 Ur Specific [place] (1.010 - 1.030) 1.010 Urine Protein (NEGATIVE) NEGATIVE Urine Ketones (NEGATIVE) NEGATIVE Urine Blood (NEGATIVE) NEGATIVE Urine Nitrite (NEGATIVE) NEGATIVE Urine Bilirubin (NEGATIVE) NEGATIVE Urine Urobilinogen (0.2 - 1.0 EU/dL) 0.2 Ur Leukocyte Esterase (NEGATIVE) NEGATIVE Urine RBC (0 - 1 rbc/hpf) 0-1 Urine WBC (0 - 1 wbc/hpf) 0-1 Ur Epithelial Cells (0 - 5 EPI/hpf) 0-1 Urine Bacteria (NONE SEEN) NONE SEEN Urine Glucose (NEGATIVE) NEGATIVE Urine Comment CULT NOT INDICATED 01/11 1428 Coagulation APTT (24 - 34 SECONDS) 112 Assessment and Plan Problem List 1. Pulmonary embolism Plan - pt has evidence of pulmonary embolism without any evidence of vascular compromise or destarutation - patients respiratory exam did not reveal any pathology - no evidence of desaturation on room air - will c/w heparin drip for the time being - will look for xarelto approval and if approved will start it - if not will initiate coumadin - will c/w monitoring vital signs as per nursing shift 2. Left leg DVT Plan - stable - no evidence of vascular compromise - will c/w anti coagulation 3. Atrial fibrillation Plan - known condition - currenlty rate controlled and stable - will continue to monitor on telemetry - will c/w home medications
[2017-01-11 12:49] VITALS: BP 103/67
[2017-01-11 14:23] VITALS: BP 142/71
[2017-01-11 14:37] VITALS: BP 104/54
[2017-01-11 17:50] VITALS: BP 112/61; BP 12/61
[2017-01-11 22:35] VITALS: BP 119/68
[2017-01-12 02:44] VITALS: BP 124/70
--- NOTE | 2017-01-12 06:46 | Progress Note ---
Subjective General Note Date: 01/12/2017 Admission Date: [admit date] Hospital Day: [Hospital day] PCP: [PCP] Status:[Status] Advanced Directive: [AD] Room: [room] 71 year old female presenting with palpitations of one day duration. Patient was seen to have a DVT in the left lower extremity and PE in the lung base on the right Prolonged discussion with patient regarding her current care and her understanding of the pulmonary embolism and DVT did productions. Patient has just recently been discharged from cardiothoracic surgery patient is doing remarkably. She however is developed embolism in the lung secondary to DVT. Patient was started on heparin drip upon arrival to the ED. Patient is being transferred into fXa inhibitor (Xaralto) Constitutional Denies: Chills, Sweats. Respiratory Other (improved.). Cardiovascular Denies: Edema. Gastrointestinal Denies: Abdominal Pain. Skin Denies: Jaundice. Neurological Denies: Seizures. Physical Exam Vital Signs / I&Os Vital Signs Date Time Temp Pulse Resp B/P Pulse O2 O2 Flow FiO2 Ox Delivery Rate 01/12 0244 98.8 76 16 124/70 96 Room Air 01/11 2235 98.2 72 17 119/68 95 Room Air 01/11 2042 Room Air 01/11 1750 97.9 75 20 112/61 96 Room Air 0.0 01/11 1437 98.4 74 20 104/54 97 Room Air 0.0 01/11 1249 97.3 77 21 103/67 95 Room Air 0.0 01/11 0944 95 01/11 0937 97.9 74 20 128/69 96 Room Air 0.0 I&O 01/11 0800 01/11 1600 01/12 0000 Intake Total 633 Output Total 955 300 Balance -955 333 General Appearance Oriented X3, Cooperative, No acute distress HEENT Atraumatic, EOMI Lungs Normal air movement Neck Supple, No JVD Cardiovascular Regular rate and rhythm, Normal S1 and S2 Extremities No edema Psych/Mental Status Mood normal LAB Results Laboratory Tests 01/11 01/11 01/12 1428 2100 0530 Chemistry Plasma Magnesium (1.8 - 2.4 mg/dL) 2.3 Coagulation APTT (24 - 34 SECONDS) 112 59 107 Hematology WBC (4.5 - 11.5 K/uL) 8.1 RBC (4.00 - 5.20 M/uL) 2.99 Hgb (12.0 - 16.0 gm/dL) 9.5 Hct (36.0 - 46.0 %) 28.2 MCV (80 - 100 fL) 94 MCH (26 - 34 pg) 32 RDW (11.6 - 14.8 %) 16.0 Neut % (Auto) (50 - 75 %) 79.9 Lymph % (Auto) (25 - 40 %) 14.9 [place] % (Auto) (3 - 14 %) 5.0 Eos % (Auto) (0 - 4 %) 0 Baso % (Auto) (0 - 2 %) 0.2 Plt Count, EDTA (150 - 400 K/uL) 93 PUBS MCHC (31 - 37 g/dL) 34 Assessment and Plan Problem List 1. Pulmonary embolism Plan Pulmonary embolus noted in the right lower lung lobe. This is secondary to DVT that occurred in the left lower extremity. 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 Patient had some static convalescence. Likely related to the stasis of blood flow leading to localized hypercoagulability. Patient was initiated on heparin drip. This was transitioned to a Xa inhibitor Xaralto Patient will be discharged home today 2. Left leg DVT Plan Lower extremity DVT. Patient currently on heparin drip and transition to a 10 A inhibitor or also. Patient will be discharged home to primary care. Room air care follow-up with either Dr. Christopher or Dr. Marie Patient could ultimately see Dr. maxx Blanca; [facility]. 3. Atrial fibrillation Plan There is a prior history of A. fib. Patient had recent CABG. Patient will be on anticoagulation, Current status: Fair Anticipated discharge date: 1-2 days Anticipated discharge placement: home Patient care time: Time spent in chart review, patient interview, physical exam, CPOE, and care documentation: 30 minutes Visit to patient today: 2 Complexity of care: mild E&M Codes Rounding: Obsv-Comp/Moderate/[id number] Discharge: Inpt <30 min spent/[id number]
[2017-01-12 06:54] VITALS: BP 110/67
[2017-01-12] MEDS ORDERED: AMIODARONE HCL200 MG PO (07:38)
[2017-01-12] MEDS ORDERED: ASPIRIN325 MG PO (07:39)
[2017-01-12] MEDS ORDERED: ACETAMINOPHEN325 MG PO (07:40)
[2017-01-12] MEDS ORDERED: MULTIPLE VITAMIN PO (07:40)
[2017-01-12] MEDS ORDERED: FIBERCON625 MG PO (07:41)
[2017-01-12 10:30] VITALS: BP 109/64
[2017-01-12 14:20] VITALS: BP 111/66
[2017-01-12] MEDS ORDERED: XARELTO10 MG PO (14:56)
--- NOTE | 2017-01-12 15:00 | Provider's Discharge Care Plan ---
Problem, Goal, Plan Problem List 1. Pulmonary embolism Goals: Improve disease control, Improve function, Prevent disease progress, New medication Xarelto 15 mg po bid Instructions: Increase activity level, Reduce stress, slowly increase your Activity level At the discretion of your doctor. 2. Left leg DVT Goals: Improve disease control, Improve function Instructions: Follow up as directed, Take meds as directed 3. Atrial fibrillation Goals: Improve function, Learn about illness, Prevent disease progress Instructions: Follow up as directed, Take meds as directed, Avoid processed foods
== END 2017-01-12 18:03 | disposition home or self-care (01) ==
LOC: ED SRH 04:55 → ACUTE2 SRH 07:44 → TRANS SRH 07:44 → ACUTE2 SRH 09:30
PROVIDERS: ADMIT Student in an Organized Health Care Education/Training Program
DX: I26.99 Other pulmonary embolism without acute cor pulmonale (principal); I82.412 Acute embolism and thrombosis of left femoral vein; I48.91 Unspecified atrial fibrillation; I25.10 Atherosclerotic heart disease of native coronary artery without angina pectoris; Z95.1 Presence of aortocoronary bypass graft
CPT/HCPCS: 29230; 29264; 85241; 85244; 90004; 90074; 90100; 90616; 91320; 91556; 92720; 94001; 94060; 95059